=== PATIENT | male | born 1990 | race Caucasian/White ===

== ENCOUNTER 2024-10-03 18:55 | Emergency (ER) | payer SELFPAY ==
[2024-10-03 19:10] VITALS: BP 146/83; PULSE 93
== END 2024-10-03 19:34 | disposition home or self-care (01) ==
LOC: FB.ED 18:55
DX: U09.9 Post COVID-19 condition, unspecified (principal)
CPT/HCPCS: 93005; 99284

== ENCOUNTER 2025-04-25 17:36 | Emergency (ER) | payer SELFPAY ==
[2025-04-25 18:06] VITALS: BP 143/85; PULSE 92
== END 2025-04-25 18:11 | disposition home or self-care (01) ==
LOC: FB.ED 17:36
DX: S01.01XA Laceration without foreign body of scalp, initial encounter (principal); Z86.16 Personal history of COVID-19; W22.8XXA Striking against or struck by other objects, initial encounter
CPT/HCPCS: 12002; 99282